=== PATIENT | male | born 1995 | race Two or more races ===

== ENCOUNTER 2017-08-07 16:34 | Emergency (ER) | payer SELFPAY ==
[2017-08-07 16:42] VITALS: BP 125/68
--- NOTE | 2017-08-07 17:05 | ER Document Report ---
HPI - HPI Patient complains to provider of: Rash that develops after shaving Onset/Duration: Gone Quality of pain: No pain Pain Level: Denies Context: Patient presents because he states that he develops bumps after shaving and his employer requires him to shave. Patient is requesting a note be written that excuses him from shaving for his employer. Patient presently denies any bumps and presently has at least 1/2 inch of brenner growth Associated Symptoms: None Exacerbated by: Denies Relieved by: Denies Similar symptoms previously: Yes - ROS ROS below otherwise negative: Yes Systems Reviewed and Negative: Yes All other systems reviewed and negative - CONSTITUTIONAL Constitutional: DENIES: Fever - REPRODUCTIVE Reproductive: DENIES: : - DERM Skin Color: Normal Notes: Patient reports he develops a rash after shaving although has not shaved recently in does not have a rash presently. Past Medical History - General Information source: Patient - Social History Smoking Status: Never Smoker Frequency of alcohol use: Occasional Drug Abuse: None Occupation: Reservist Family History: Reviewed & Not Pertinent - Medical History Medical History: Negative Neurological Medical History: Denies: Hx Seizures Renal/ Medical History: Denies: Hx Peritoneal Dialysis Surgical Hx: Negative - Immunizations Hx Diphtheria, Pertussis, Tetanus Vaccination: Yes Vertical Provider Document - CONSTITUTIONAL Agree With Documented VS: Yes Exam Limitations: No Limitations General Appearance: WD/WN, No Apparent Distress - INFECTION CONTROL TRAVEL OUTSIDE OF THE [place] IN LAST 30 DAYS: No - HEENT HEENT: Atraumatic, Normocephalic - NECK Neck: Normal Inspection, Supple - RESPIRATORY Respiratory: Breath Sounds Normal, No Respiratory Distress O2 Sat by Pulse Oximetry: 99 - CARDIOVASCULAR Cardiovascular: Regular Rate, Regular Rhythm, No Murmur - MUSCULOSKELETAL/EXTREMETIES Musculoskeletal/Extremeties: MAEW - NEURO Level of Consciousness: Awake, Alert, Appropriate Motor/Sensory: No Motor Deficit - DERM Integumentary: Warm, Dry, No Rash Course - Vital Signs Vital signs: Temp Pulse Resp BP Pulse Ox 98.4 F 77 16 125/68 99 08/07/17 16:41 08/07/17 16:41 08/07/17 16:41 08/07/17 16:41 08/07/17 16:41 Discharge - Discharge Clinical Impression: hx pseudofolliculitis barbae, Normal exam Condition: Stable Disposition: HOME, SELF-CARE Additional Instructions: Return immediately for any new or worsening symptoms Followup with your primary care provider, call tomorrow to make a followup appointment Avoid shaving to limit recurrence of symptoms Forms: Restricted Release Referrals: ALE CORTÉS DO [ACTIVE STAFF] - Follow up in 1 week
== END 2017-08-07 17:10 | disposition home or self-care (01) ==
LOC: ER 16:34
DX: Z76.89 Persons encountering health services in other specified circumstances (principal); Z87.2 Personal history of diseases of the skin and subcutaneous tissue
CPT/HCPCS: 99283

== ENCOUNTER 2017-08-10 22:10 | Emergency (ER) | payer SELFPAY ==
--- NOTE | 2017-08-10 23:57 | ER Document Report ---
ED ENT - General Mode of Arrival: Ambulatory Information source: Patient TRAVEL OUTSIDE OF THE [place] IN LAST 30 DAYS: No - HPI Patient complains to provider of: Throat problem Onset: Yesterday - Refer to HPI notes Similar symptoms previously: No Recently seen / treated by doctor: No - General Chief Complaint: Sore Throat Stated Complaint: THROAT PAIN Time Seen by Provider: 08/10/17 23:42 - HPI Notes: Patient is a 22-year-old male presented emergency department for sore throat. Patient also complains of some "bumps on his tongue." Patient symptoms onset yesterday. Patient does not take any regular medications. Patient has no known drug allergies. Patient does not have a primary care physician. (NURY GARDNER) - Related Data Allergies/Adverse Reactions: No Known Allergies Allergy (Verified 08/10/17 22:44) Past Medical History - General Information source: Patient - Social History Smoking Status: Unknown if Ever Smoked Chew tobacco use (# tins/day): No Smoking Education Provided: No Frequency of alcohol use: None Drug Abuse: None Family History: None Patient has suicidal ideation: No Patient has homicidal ideation: No Surgical Hx: Negative - Immunizations Hx Diphtheria, Pertussis, Tetanus Vaccination: Yes Review of Systems - Review of Systems Constitutional: No symptoms reported EENT: See HPI, Throat pain Cardiovascular: No symptoms reported Respiratory: No symptoms reported Gastrointestinal: No symptoms reported Genitourinary: No symptoms reported Male Genitourinary: No symptoms reported Musculoskeletal: No symptoms reported Skin: No symptoms reported Hematologic/Lymphatic: No symptoms reported Neurological/Psychological: No symptoms reported -: Yes All other systems reviewed and negative Physical Exam - Vital signs Interpretation: Normal - Vital signs Vitals: Temp Pulse Resp BP Pulse Ox 99.1 F 77 18 118/62 98 08/10/17 22:46 08/10/17 22:46 08/10/17 22:46 08/10/17 22:46 08/10/17 22:46 - Notes Notes: GENERAL: Alert, interacts well. No acute distress. HEAD: Normocephalic, atraumatic. EYES: Appear normal. Pupils equal, round, and reactive to light. ENT: Moist mucus membranes, tongue midline. Normal papillae, erythema to the oropharynx, viral appearing. NECK: Full range of motion. Supple. Trachea midline. No anterior cervical lymphadenopathy. LUNGS: No respiratory distress. EXTREMITIES: Moves all 4 extremities spontaneously. Normal strength. No edema. NEUROLOGICAL: Alert and oriented x3. Normal speech. No focal neurological deficits. GCS 15. PSYCH: Normal affect, normal mood. SKIN: Warm, dry, normal turgor. No rashes or lesions noted. (NURY GARDNER) - Vital Signs Vital signs: Temp Pulse Resp BP Pulse Ox 99.1 F 77 18 118/62 98 08/10/17 22:46 08/10/17 22:46 08/10/17 22:46 08/10/17 22:46 08/10/17 22:46 Discharge - Discharge Clinical Impression: Viral pharyngitis Condition: Stable Disposition: HOME, SELF-CARE Additional Instructions: Sore Throat: Sore throats may be caused by viruses, bacteria, or fungi. Most are due to a virus, and must get better on their own. Bacterial sore throats, particularly those due to "strep," need treatment with antibiotics. To relieve symptoms, take acetaminophen for pain. Sip clear liquids frequently, or eat popsicles or ice chips. Anesthetic sprays or lozenges may help. Make sure the air in the room is not too dry. Avoid using decongestants or antihistamines. Call the doctor if there is no improvement in two days, or if you have difficulty breathing, increasing throat pain, high fever, rash, or frequent vomiting. Your evaluation suggests this is a viral pharyngitis with sore throat and prominent bumps on your tongue. Antibiotics do not help this. Drink plenty of fluids. Get plenty of rest. Take Tylenol and ibuprofen or Aleve for pain if needed. Follow-up with local medical doctor if not improving over the next several days. Scribe Attestation: 08/11/17 00:46 I personally performed the services described in the documentation, reviewed and edited the documentation which was dictated to the scribe in my presence, and it accurately records my words and actions. (JIMI REYES) Scribe Documentation - Scribe Written by Khushi:: Khushi Austin, 08/11/2017 00:04 acting as scribe for :: Hannah
[2017-08-11 01:13] VITALS: BP 102/66
== END 2017-08-11 01:15 | disposition home or self-care (01) ==
LOC: ER 22:10
DX: J02.9 Acute pharyngitis, unspecified (principal); B34.9 Viral infection, unspecified
CPT/HCPCS: 87070; 87880; 99282

== ENCOUNTER 2017-08-11 11:18 | Emergency (ER) | payer SELFPAY ==
[2017-08-11 11:34] VITALS: BP 127/65
--- NOTE | 2017-08-11 11:54 | ER Document Report ---
HPI - HPI Pain Level: Denies Context: 22-year-old male states that he has mild sore throat and when he examined his throat tongue and sides of his mouth he states that he sees bumps that is never had before and he thinks he has HPV. No fever. Associated Symptoms: None Exacerbated by: Denies Relieved by: Denies Similar symptoms previously: No Recently seen / treated by doctor: No - ROS ROS below otherwise negative: Yes Systems Reviewed and Negative: Yes All other systems reviewed and negative - REPRODUCTIVE Reproductive: DENIES: : - DERM Skin Color: Normal Past Medical History - General Information source: Patient - Social History Smoking Status: Unknown if Ever Smoked Frequency of alcohol use: None Drug Abuse: None Lives with: Family Family History: None - Medical History Medical History: Negative Renal/ Medical History: Denies: Hx Peritoneal Dialysis Surgical Hx: Negative - Immunizations Hx Diphtheria, Pertussis, Tetanus Vaccination: Yes Vertical Provider Document - CONSTITUTIONAL Agree With Documented VS: Yes Exam Limitations: No Limitations - INFECTION CONTROL TRAVEL OUTSIDE OF THE [place] IN LAST 30 DAYS: No - HEENT HEENT: Normocephalic, Pharyngeal Erythema - minimal anterior pillars, no lesions anywhere in mouth, pharynx, lips, tongue or under tongue - NECK Neck: Supple. negative: Lymphadenopathy-Left, Lymphadenopathy-Right - RESPIRATORY O2 Sat by Pulse Oximetry: 100 - NEURO Level of Consciousness: Awake, Alert, Appropriate - DERM Integumentary: Warm, Dry, No Rash Course - Vital Signs Vital signs: Temp Pulse Resp BP Pulse Ox 98.3 F 74 18 127/65 H 100 08/11/17 11:31 08/11/17 11:31 08/11/17 11:31 08/11/17 11:31 08/11/17 11:31 Discharge - Discharge Clinical Impression: sore throat Condition: Good Disposition: HOME, SELF-CARE Instructions: Sore Throat ([facility]), Acetaminophen Additional Instructions: to er any concerns Please complete the patient satisfaction survey if you get one, and return it.. If you do not receive a survey, then you can go to the [facility] website, [email or web address] and place your comments about your very good care. Thank you very much. It was a pleasure being your medical provider today. Forms: Return to Work
== END 2017-08-11 12:00 | disposition home or self-care (01) ==
LOC: ER 11:18
DX: J02.9 Acute pharyngitis, unspecified (principal)
CPT/HCPCS: 99282

== ENCOUNTER 2017-09-18 15:38 | Emergency (ER) | payer SELFPAY ==
[2017-09-18 15:45] VITALS: BP 120/69
--- NOTE | 2017-09-18 16:22 | ER Document Report ---
ED Skin Rash/Insect Bite/Abscs - General Chief Complaint: Skin Problem Stated Complaint: RASH Time Seen by Provider: 09/18/17 15:56 Mode of Arrival: Ambulatory Information source: Patient Notes: 22-year-old male presents to ED for painful rash to face every time he shaves. He states that he was required to come to the emergency room to get a statement that he does not need to have showed close shave while in the . He states he has a rash every time he states for almost the last 4 years. TRAVEL OUTSIDE OF THE [place] IN LAST 30 DAYS: No - HPI Patient complains to provider of: Skin rash/lesion Onset: Other - After each shaving Onset/Duration: Intermittent Quality of pain: Burning Severity: Moderate Pain Level: 3 Skin Character: Macules, Papules Quality of rash: Painful Identify cause: Yes - Shaving Exacerbated by: Denies Relieved by: Denies Similar symptoms previously: Yes Recently seen / treated by doctor: No - Related Data Allergies/Adverse Reactions: No Known Allergies Allergy (Verified 08/11/17 11:34) Past Medical History - General Information source: Patient - Social History Smoking Status: Current Every Day Smoker Cigarette use (# per day): Yes Chew tobacco use (# tins/day): No Smoking Education Provided: Yes - Less than 1 minute Frequency of alcohol use: Social Drug Abuse: None Occupation: [employer] Lives with: Family Family History: Arthritis, DM, Hypertension. denies: CAD, COPD, CVA, Hyperlipidemia, Malignancy, Thyroid Disfunction Patient has suicidal ideation: No Patient has homicidal ideation: No - Past Medical History Cardiac Medical History: Reports: None Pulmonary Medical History: Reports: None EENT Medical History: Reports: None Neurological Medical History: Reports: None Endocrine Medical History: Reports: None Renal/ Medical History: Reports: None Malignancy Medical History: Reports None GI Medical History: Reports: None Musculoskeltal Medical History: Reports None Skin Medical History: Reports None Psychiatric Medical History: Reports: None Traumatic Medical History: Reports: None Infectious Medical History: Reports: None Surgical Hx: Negative Past Surgical History: Reports: None - Immunizations Immunizations up to date: Yes Hx Diphtheria, Pertussis, Tetanus Vaccination: Yes Review of Systems - Review of Systems Constitutional: No symptoms reported EENT: No symptoms reported Cardiovascular: No symptoms reported Respiratory: No symptoms reported Gastrointestinal: No symptoms reported Genitourinary: No symptoms reported Male Genitourinary: No symptoms reported Musculoskeletal: No symptoms reported Skin: Rash Hematologic/Lymphatic: No symptoms reported Neurological/Psychological: No symptoms reported -: Yes All other systems reviewed and negative Physical Exam - Vital signs Vitals: Temp Pulse Resp BP Pulse Ox 98.7 F 72 20 120/69 100 09/18/17 15:40 09/18/17 15:40 09/18/17 15:40 09/18/17 15:40 09/18/17 15:40 Interpretation: Normal - General General appearance: Appears well, Alert - HEENT Head: Normocephalic, Atraumatic Eyes: Normal Pupils: PERRL - Respiratory Respiratory status: No respiratory distress Chest status: Nontender Breath sounds: Normal Chest palpation: Normal - Cardiovascular Rhythm: Regular Heart sounds: Normal auscultation Murmur: No - Abdominal Inspection: Normal Distension: No distension Bowel sounds: Normal Tenderness: Nontender Organomegaly: No organomegaly - Back Back: Normal, Nontender - Extremities General upper extremity: Normal inspection, Nontender, Normal color, Normal ROM , Normal temperature General lower extremity: Normal inspection, Nontender, Normal color, Normal ROM , Normal temperature, Normal weight bearing. No: Carito's sign - Neurological Neuro grossly intact: Yes Cognition: Normal Orientation: AAOx4 Home Coma Scale Eye Opening: Spontaneous Home Coma Scale Verbal: Oriented Home Coma Scale Motor: Obeys Commands Home Coma Scale Total: 15 Speech: Normal Motor strength normal: LUE, RUE, LLE, RLE Sensory: Normal - Psychological Associated symptoms: Normal affect, Normal mood - Skin Skin Temperature: Warm Skin Moisture: Dry Skin Color: Normal Skin irregularity: Rash - Minimal rash at this time as patient has a small growth of brenner patient has pictures showing what his face looks like when he does shave closely. Patient states she has been using a razor guard to shave recently and the rash has started to clear out Location of irregularity: Face Course - Re-evaluation Re-evalutation: 09/18/17 20:47 Patient was given a release from close shaving well and on active duty due to his dermatitis from every time he close shaves. - Vital Signs Vital signs: Temp Pulse Resp BP Pulse Ox 98.7 F 72 20 120/69 100 09/18/17 15:40 09/18/17 15:40 09/18/17 15:40 09/18/17 15:40 09/18/17 15:40 Discharge - Discharge Clinical Impression: dermatitis due to shaving Condition: Stable Disposition: HOME, SELF-CARE Additional Instructions: You were seen today for dermatitis to the face after shaving. He states every time you shave close that you develop a rash that becomes very painful. I recommend shave with a guard to prevent the irritation to the face. You were given a recommendation for shaven with a guard while in the . FOLLOW-UP CARE: If you have been referred to a physician for follow-up care, call the physician s office for an appointment as you were instructed or within the next two days. If you experience worsening or a significant change in your symptoms, notify the physician immediately or return to the Emergency Department at any time for re-evaluation. Forms: Smoking Cessation Education
== END 2017-09-18 16:20 | disposition home or self-care (01) ==
LOC: ER 15:38
DX: L30.8 Other specified dermatitis (principal); F17.210 Nicotine dependence, cigarettes, uncomplicated
CPT/HCPCS: 99282

== ENCOUNTER 2017-10-22 23:54 | Emergency (ER) | payer SELFPAY ==
[2017-10-23] MEDS ORDERED: DEXAMETHASONE SOD PHOS INJ 10 MG/1 ML VIAL IM ONE (02:12)
--- NOTE | 2017-10-23 02:18 | ER Document Report ---
HPI - HPI Pain Level: 3 Notes: Patient is a 22-year-old male who presents the ED complaining of sore throat, nasal congestion/discharge, right ear pain 2-3 days. Patient states that he has had intermittent symptoms over the last 2 months with associated headache at times as well. Patient states that he still eating and drinking without difficulties. He has been using some [id number] meds with minimal relief. Patient has not been evaluated by his PCM for this issue. Denies any history of tonsillar abscess. Denies any current headache, fever, neck pain, hoarseness, drooling, trouble swallowing, chest pain, palpitations, syncope, cough, shortness of breath, wheeze, dyspnea, abdominal pain, nausea/vomiting/ diarrhea, urinary retention, dysuria, hematuria, or rash. Denies IV drug use. - ROS Notes: REVIEW OF SYSTEMS: CONSTITUTIONAL : Denies fever, chills, or sweats. Denies recent illness. EENT: see hpi CARDIOVASCULAR: Denies chest pain. Denies palpitations or racing or irregular heart beat. Denies ankle edema. RESPIRATORY: Denies cough, cold, or chest congestion. Denies shortness of breath, difficulty breathing, or wheezing. GASTROINTESTINAL: Denies abdominal pain or distention. Denies nausea, vomiting , or diarrhea. GENITOURINARY: Denies difficulty urinating, painful urination, burning, frequency, blood in urine, or discharge. MUSCULOSKELETAL: Denies back or neck pain or stiffness. Denies joint pain or swelling. SKIN: Denies rash, lesions or sores. NEUROLOGICAL: Denies confusion or altered mental status. Denies passing out or loss of consciousness. Denies dizziness or lightheadedness. Denies headache. Denies weakness or paralysis or loss of use of either side. Denies problems with gait or speech. Denies sensory loss, numbness, or tingling. ALL OTHER SYSTEMS REVIEWED AND NEGATIVE. Dictation was performed using [employer] voice recognition software - CONSTITUTIONAL Constitutional: REPORTS: Fever. DENIES: Chills - EENT EENT: REPORTS: Sore Throat, Ear Pain. DENIES: Eye problems - NEURO Neurology: REPORTS: Headache - RESPIRATORY Respiratory: REPORTS: Coughing - GASTROINTESTINAL Gastrointestinal: DENIES: Abdominal Pain, Black / Bloody Stools - URINARY Urinary: DENIES: Dysuria, Urgency, Frequency - REPRODUCTIVE Reproductive: DENIES: : - MUSCULOSKELETAL Musculoskeletal: DENIES: Extremity pain Past Medical History - Social History Smoking Status: Current Every Day Smoker Frequency of alcohol use: Occasional Drug Abuse: None Family History: Arthritis, DM, Hypertension. denies: CAD, COPD, CVA, Hyperlipidemia, Malignancy, Thyroid Disfunction Patient has suicidal ideation: No Patient has homicidal ideation: No Neurological Medical History: Denies: Hx Seizures Renal/ Medical History: Denies: Hx Peritoneal Dialysis - Immunizations Immunizations up to date: Yes Hx Diphtheria, Pertussis, Tetanus Vaccination: Yes Vertical Provider Document - CONSTITUTIONAL Agree With Documented VS: Yes Notes: PHYSICAL EXAMINATION: GENERAL: Well-appearing, well-nourished and in no acute distress. HEAD: Atraumatic, normocephalic. EYES: Pupils equal round and reactive to light, extraocular movements intact, sclera anicteric, conjunctiva are normal. ENT: EAC clear b/l. TM's intact b/l without erythema, fluid, or perforation. Nares patent and without discharge. oropharynx mild erythema without exudates. 2+ tonsilar hypertrophy without exudates. + mild erythema. No palatine shift. Uvula midline. No tongue protrusion. Moist mucous membranes. No sinus tenderness. No drooling, hoarseness. NECK: Normal range of motion, supple without lymphadenopathy. No rigidity/ meningismus. LUNGS: Breath sounds clear to auscultation bilaterally and equal. No wheezes rales or rhonchi. HEART: Regular rate and rhythm without murmurs, rubs, gallops. ABDOMEN: Soft, nontender, nondistended abdomen. No guarding, no rebound. No masses appreciated. Normal bowel sounds present. No CVA tenderness bilaterally. No hepatosplenomegaly. NEUROLOGICAL: Normal speech, normal gait. Normal sensory, motor exams PSYCH: Normal mood, normal affect. SKIN: Warm, Dry, normal turgor, no rashes or lesions noted. - INFECTION CONTROL TRAVEL OUTSIDE OF THE [place] IN LAST 30 DAYS: No - RESPIRATORY O2 Sat by Pulse Oximetry: 100 Course - Re-evaluation Re-evalutation: 10/23/17 03:00 Patient is an afebrile, well-hydrated, 22-year-old male who presents the ED with acute URI/pharyngitis, suspect viral at this time. Vitals are stable. PE is otherwise unremarkable. Rapid strep is negative with a culture pending. Low suspicion for any meningitis, sepsis, peritonsillar/pharyngeal abscess, respiratory compromise, Robel's, or other emergent systemic condition at this time. Patient is aware this condition can change from initial presentation and she needs to monitor symptoms closely. Conservative measures otherwise for symptoms. Recheck with your PCM in 3-5 days. Consider consult with ENT. Return to the ED with any worsening/concerning symptoms otherwise as reviewed in discharge. Patient is in agreement. - Vital Signs Vital signs: Temp Pulse Resp BP Pulse Ox 99 F 68 18 129/70 H 100 10/23/17 00:15 10/23/17 00:15 10/23/17 00:15 10/23/17 00:15 10/23/17 00:15 Discharge - Discharge Clinical Impression: Acute pharyngitis Qualifiers: Pharyngitis/tonsillitis etiology: unspecified etiology Qualified Code(s): J02.9 - Acute pharyngitis, unspecified Condition: Stable Disposition: HOME, SELF-CARE Instructions: Sore Throat ([facility]) Additional Instructions: Maintain adequate fluid intake Take meds as directed Salt water gargles, throat sprays, mouthwash rinse, peroxide gargles tylenol/ibuprofen as needed over the counter cold medication as needed for symptoms (mucinex and pseudafed may help with congestion) F/u: with your PCM in 3-5 days for a recheck Consider consult with ENT for ongoing/worsening symptoms Return to the ED with any fever, worsening pain, chest pain, neck pain/stiffness , shortness of breath, cough, drooling, trouble swallowing/breathing, abdominal pain, n/v/d, rash, or worsening/concerning symptoms otherwise. Forms: Elevated Blood Pressure Referrals: KATIUSKA SHEEHAN MD [ACTIVE STAFF] - Follow up in 1 week [facility] [Provider Group] - Follow up as needed [facility] [Provider Group] - Follow up as needed
[2017-10-23 03:18] VITALS: BP 121/75
== END 2017-10-23 03:18 | disposition home or self-care (01) ==
LOC: ER 23:54
DX: J02.9 Acute pharyngitis, unspecified (principal); R09.81 Nasal congestion; H92.01 Otalgia, right ear; F17.200 Nicotine dependence, unspecified, uncomplicated
CPT/HCPCS: 99283; 96372; 87070; 87880; 87077; J1100

== ENCOUNTER 2018-02-02 00:01 | Emergency (ER) | payer SELFPAY ==
[2018-02-02 00:12] VITALS: BP 132/82
== END 2018-02-02 01:40 | disposition left against medical advice (07) ==
LOC: ER 00:01
DX: Z53.21 Procedure and treatment not carried out due to patient leaving prior to being seen by health care provider (principal)

== ENCOUNTER 2018-02-14 00:11 | Emergency (ER) | payer OTHER ==
[2018-02-14] MEDS ORDERED: FAMOTIDINE 20 MG TABLET PO ONE (03:13)
--- NOTE | 2018-02-14 03:15 | ER Document Report ---
ED General - General Chief Complaint: Sore Throat Stated Complaint: SORE THROAT Time Seen by Provider: 02/14/18 03:13 Notes: Patient is a 22-year-old male without past medical history who presents with multiple complaints. Patient complains about 6 weeks of sore throat, odynophagia, and a regular sensation of burning to the back of his throat. He also notes that he has had hair loss and has intermittent tingling over his throat and left side of his chest. Nothing is new or different about her symptoms today that prompted a visit to the emergency department. Nothing improves or worsens his symptoms. He denies a history of similar symptoms prior to the past 6 weeks. He has not seen a primary doctor regarding today's concerns. Denies any shortness of breath, fever, headache, neck pain, weight loss, or altered mental status. TRAVEL OUTSIDE OF THE [place] IN LAST 30 DAYS: No - Related Data Allergies/Adverse Reactions: No Known Allergies Allergy (Verified 10/23/17 00:15) Past Medical History - General Information source: Patient - Social History Smoking Status: Never Smoker Frequency of alcohol use: None Drug Abuse: None Lives with: Family Family History: Arthritis, DM, Hypertension. denies: CAD, COPD, CVA, Hyperlipidemia, Malignancy, Thyroid Disfunction Neurological Medical History: Denies: Hx Seizures Renal/ Medical History: Denies: Hx Peritoneal Dialysis - Immunizations Immunizations up to date: Yes Hx Diphtheria, Pertussis, Tetanus Vaccination: Yes Review of Systems - Review of Systems Notes: Constitutional: Negative for fever. HENT: Positive for sore throat. Eyes: Negative for visual changes. Cardiovascular: Negative for chest pain. Respiratory: Negative for shortness of breath. Gastrointestinal: Negative for abdominal pain, vomiting or diarrhea. Genitourinary: Negative for dysuria. Musculoskeletal: Negative for back pain. Skin: Negative for rash. Neurological: Negative for headaches, weakness or numbness. 10 point ROS negative except as marked above and in HPI. Physical Exam - Vital signs Vitals: Temp Pulse Resp BP Pulse Ox 98.4 F 74 20 120/76 99 02/14/18 00:19 02/14/18 00:19 02/14/18 00:19 02/14/18 00:19 02/14/18 00:19 Interpretation: Normal Notes: PHYSICAL EXAMINATION: GENERAL: Well-appearing, well-nourished and in no acute distress. HEAD: Atraumatic, normocephalic. EYES: Pupils equal round and reactive to light, extraocular movements intact, sclera anicteric, conjunctiva are normal. ENT: nares patent, mild swelling and erythema to the bilateral tonsils and uvula. Uvula is midline. Moist mucous membranes. NECK: Normal range of motion, supple without lymphadenopathy LUNGS: Breath sounds clear to auscultation bilaterally and equal. No wheezes rales or rhonchi. HEART: Regular rate and rhythm without murmurs ABDOMEN: Soft, nontender, normoactive bowel sounds. No guarding, no rebound. No masses appreciated. EXTREMITIES: Normal range of motion, no pitting or edema. No cyanosis. NEUROLOGICAL: No focal neurological deficits. Moves all extremities spontaneously and on command. PSYCH: Normal mood, normal affect. SKIN: Warm, Dry, normal turgor, no rashes or lesions noted. Course - Re-evaluation Re-evalutation: 02/14/18 03:13 Patient presents with multiple vague complaints that did not appear to be concerning for any acute life-threatening pathology. Vitals are within normal limits at triage and at time of discharge. Physical examination is unremarkable. Patient has tolerated oral intake without difficulty. Patient was not noted to be in distress at any point during their ER visit. Patient's main plan is regarding a sore throat that he has had for at least 6-8 weeks. There was several areas of irritation and erythema to the posterior pharynx but the uvula is midline, no tonsillar exudates, no evidence of strep pharyngitis. Rapid strep is negative. The only diagnosis that he can think of that would be causing the patient discomfort with swallowing as well as some irritation to the back of the pharynx could be a esophageal reflux. I started him on famotidine 40 mg twice daily and have instructed him to follow-up closely with outpatient primary care physician for further workup of his multiple complaints. At this time, based on the reassuring evaluation, I do not suspect an acute [place], pulmonary embolus, aortic dissection, acute intra-abdominal pathology, stroke, or sepsis.Will discharge with return precautions and follow- up recommendations. Verbal discharge instructions given a the bedside and opportunity for questions given. Medication warnings reviewed. Patient is in agreement with this plan and has verbalized understanding of return precautions and the need for primary care follow-up in the next 24-72 hours. - Vital Signs Vital signs: Temp Pulse Resp BP Pulse Ox 98.4 F 74 20 120/76 99 02/14/18 00:19 02/14/18 00:19 02/14/18 00:19 02/14/18 00:19 02/14/18 00:19 Discharge - Discharge Clinical Impression: Throat pain, Odynophagia, Hair loss Condition: Good Disposition: HOME, SELF-CARE Additional Instructions: Please begin taking famotidine 40 mg in the morning and 40 mg at night. Please return to emergency department immediately if you have worsening of your pain, shortness of breath, vomiting, become unable to exert yourself due to pain or difficulty breathing, you pass out, or have any pain that radiates into your arms, jaw, or back. Please also return if you have any additional symptoms that are concerning to you. As we have discussed, the most important thing is lifestyle changes. You need to avoid smoking, sodas, tea, coffee, alcohol, spicy foods, and acidic foods such as citrus fruits, tomato based products, berries, and most fruit juices. Referrals: LEROY HOLLEY MD [ACTIVE STAFF] - Follow up as needed
[2018-02-14 04:37] VITALS: BP 124/74
== END 2018-02-14 03:30 | disposition home or self-care (01) ==
LOC: ER 00:11
DX: J02.9 Acute pharyngitis, unspecified (principal); R13.10 Dysphagia, unspecified; R20.2 Paresthesia of skin; L65.9 Nonscarring hair loss, unspecified
CPT/HCPCS: 87070; 87077; 87880; 99283